=== PATIENT | male | born 2000 | race Caucasian/White ===

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

== ENCOUNTER → 2021-05-17 | Outpatient (CLI) | payer OTHER ==
--- NOTE | 2021-05-17 10:49 | REP ---
INDICATION: MILD INTERMITTENT ASTHMA, UNCOMPLICATED. COMPARISON: None. TECHNIQUE: PA and lateral FINDINGS: There is a right paratracheal density which measures approximately 4 x 2.3 cm. The lung vidal are clear and the heart is not enlarged. The pleural angles are sharp. The osseous structures are within normal limits. IMPRESSION: Right paratracheal density as described above. Etiology uncertain. Contrast-enhanced CT examination of the chest is recommended. <Electronically signed by Jeff Faulkner > 05/17/21 [id number]
== END ==
LOC: M RAD 09:48
PROVIDERS: ATTEND Physician Assistant
DX: J45.20 Mild intermittent asthma, uncomplicated (principal)

== ENCOUNTER → 2021-06-06 | Outpatient (CLI) | payer OTHER ==
[2021-06-06 10:13] LABS: BLOOD UREA NITROGEN 16 MG/DL (7-18); CREATININE FOR GFR 0.97 MG/DL (0.70-1.30)
== END ==
LOC: M LAB 08:41
PROVIDERS: ATTEND Physician Assistant
DX: R91.8 Other nonspecific abnormal finding of lung field (principal)

== ENCOUNTER → 2021-06-11 | Outpatient (CLI) | payer OTHER ==
[~2021-06-11] MED LIST changes: +ISOVUE-370 76% 100ML VIAL As Ordered ONE; -METHACHOLINE KIT (J7674) INH ONE
--- NOTE | 2021-06-11 13:15 | REP ---
INDICATION: ABN FINDING OF LUNG COMPARISON: None TECHNIQUE: Axial contrast enhanced images from the thoracic inlet to the upper abdomen with coronal and sagittal reformations using 75 ml Isovue 370 intravenous contrast material. This CT examination was performed using the following dose reduction techniques: Automated exposure control, adjustment of mA and/or kv according to the patient's size, and use of iterative reconstruction technique. FINDINGS: The bilateral lung vidal are well aerated, symmetric and clear. No consolidation, suspicious nodule or mass. No effusion. No pneumothorax. Tracheobronchial tree is patent. The mediastinum is normal including normal thoracic aorta, pulmonary vasculature, and heart/pericardium. No axillary, hilar, or mediastinal adenopathy. The vague right paratracheal density may have represented slight prominence to the crossing brachial vein, and there is no associated pathology based on contrast-enhanced CT. Thyroid gland is normal. Limited upper abdomen demonstrates normal bilateral adrenal glands and normal surrounding musculoskeletal structures. IMPRESSION: Normal contrast-enhanced chest CT. No acute mediastinal or pleuroparenchymal process. No pathology corresponding to the vague right paratracheal density on recent x-ray. <Electronically signed by Zeferino Da Silva > 06/11/21 1312
== END ==
LOC: M RAD 11:21
PROVIDERS: ATTEND Physician Assistant
DX: R91.8 Other nonspecific abnormal finding of lung field (principal)
CPT/HCPCS: 71260; Q9967

== ENCOUNTER 2021-07-23 16:49 | Emergency (ER) | payer OTHER ==
[~2021-07-23] VITALS: Ht 170.2 cm; Wt 97.4 kg
[2021-07-23 16:49] VITALS: BP 110/62
[2021-07-23] MEDS ORDERED: MONT10TA10 PO (17:50)
[2021-07-23] MEDS ORDERED: QVAR80AE8 INH (17:50)
== END 2021-07-23 23:00 | disposition left against medical advice (07) ==
LOC: M ED 16:49
DX: Z53.21 Procedure and treatment not carried out due to patient leaving prior to being seen by health care provider (principal)

== ENCOUNTER → 2021-12-11 | Outpatient (REF) ==
[~2021-12-11] MED LIST changes: -ISOVUE-370 76% 100ML VIAL As Ordered ONE; +MONT10TA97 PO; +QVAR80AE8 INH
== END ==
LOC: M PLAIMG 11:23
PROVIDERS: ATTEND Internal Medicine
DX: R06.02 Shortness of breath (principal)